=== PATIENT | male | born 1945 | race African-American/Black ===

== ENCOUNTER 2016-07-07 07:31 | Day surgery (SDC) | payer MEDICARE, BC ==
[~2016-07-07 07:31] MED LIST: ASPIRIN81 MG PO; FERROUS SULFAT325 MG PO; HUMULIN R100 U/ML SQ; KEPPRA500 MG PO; LANTUS SOL100 UNIT/1 SQ; LIPITOR40 MG PO; NORVASC10 MG PO; NOVOLIN R100 U/ML SQ; PEPCID40 MG PO; TOPROL XL50 MG PO; ZESTRIL10 MG PO
[2016-07-07] MEDS ORDERED: LEVIMERE (08:53)
[2016-07-07] MEDS ORDERED: ZANTAC150 MG PO (08:57)
[2016-07-07] MEDS ORDERED: HYDRALAZINE HCL50 MG PO (08:58)
[2016-07-07 09:06] VITALS: BP 185/107; Ht 181.6 cm
[2016-07-07 09:31] LABS: APTT 34.7 SECONDS (22.8-39.4); INR 1.01 (0.85-1.17); PROTIME 13.2 SECONDS (11.6-15.0)
[2016-07-07 09:33] LABS: ANION GAP 11.5 mmol/L (8-16); CALCIUM 8.7 mg/dL (8.5-10.1); CARBON DIOXIDE 29.7 mmol/L (21.0-32.0); CREATININE - SERUM 4.7 mg/dL (0.6-1.3); POTASSIUM - SERUM 4.2 mmol/L (3.5-5.1)
[2016-07-07 10:05] LABS: BASOPHILS 1.1 % (0.0-2.0); EOSINOPHILS 1.8 % (0-7); HEMATOCRIT 32.6 % (42.0-54.0); HEMOGLOBIN 10.6 g/dL (13.5-17.5); IMMATURE GRANULOCYTES 0.3 % (0-5); LYMPHOCYTES 14.2 % (15-50); MCH 22.5 pg (26.0-34.0); MCHC 32.5 g/dL (31.0-37.0); MCV 69.1 fL (80.0-100.0); MEAN PLATELET VOLUME 10.3 fL (7.4-10.4); MONOCYTES 7.9 % (2-11); NEUTROPHILS 74.7 % (40-80); PLATELET COUNT 202 10x3/uL (130-400); RBC 4.72 10x6/uL (4.20-6.10); RDW 15.1 % (11.5-14.5); WBC 7.4 10x3/uL (4.8-10.8)
[2016-07-07] MEDS ORDERED: ULTRAM50 MG PO (13:20)
--- NOTE | 2016-07-07 15:20 | NUR ---
1415 HEMOSPLIT FLUSH WITH 2600 UNITS OF HEPRIN AND NORMAL SALINE FLUSH,
--- NOTE | 2016-07-11 09:57 | OP ---
PATIENT NAME: VIRIDIANA AVILA MEDICAL RECORD: [id number] :47 LOCATION:[facility] ADMISSION DATE: SURGEON: AKILAH HELTON MD DATE OF OPERATION: 07/07/2016 He is an outpatient. REFERRED BY: Silver Harper MD PREOPERATIVE DIAGNOSIS: End-stage renal disease, on chronic hemodialysis via a right internal jugular tunneled central dialysis catheter. POSTOPERATIVE DIAGNOSIS: End-stage renal disease, on chronic hemodialysis via a right internal jugular tunneled central dialysis catheter. OPERATION PERFORMED: Left upper extremity venogram with ultrasound-guided access percutaneously of the cephalic vein at the wrist including placement of a catheter in the left subclavian vein and performance of a superior vena cavogram, so that the venous drainage was visualized all the way from the wrist to the right atrium, then creation of a left wrist radiocephalic Maya type AV fistula. 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 PREOPERATIVE NOTE: Mr. Avila is a 71-year-old -[place] male, on hemodialysis with a right internal jugular tunneled catheter. He was referred for dialysis access. Attempts to perform venography at the [facility] was unsuccessful and he is brought to the operating room now to create a fistula or implant a graft most likely in the left upper extremity. He will have left upper extremity venogram and if there was no good access for fistula creation, I will plan to do a venogram on the right as well. Under anesthesia in the supine position, the patient was prepped and draped in sterile manner. A Shelly drain was used as a proximal venous tourniquet and nitroglycerin paste was applied to the skin of the forearm and upper arm. There were a few visible or palpable veins. I used ultrasound to examine him and found that indeed the cephalic vein at the wrist was of good caliber, even though it was not palpable or visible, otherwise, I was able to access it with ultrasound guidance using micropuncture technique and through the 4-Indonesian micropuncture catheter, injected contrast and demonstrated no proximal obstructions. The venous runoff is primarily via the basilic vein. I could not get enough contrast at one time to visualize the central veins. I was able though to advance a Glidewire and glide catheter through the percutaneous puncture site and place the catheter up in the subclavian vein and inject contrast and demonstrated there was no stenosis or other abnormality all the way to the right atrium and superior vena cava. I removed the guidewire and catheter back in the forearm and left it in place to help guide dissection. I made a longitudinal incision at the wrist and exposed the cephalic vein and the radial artery. These vessels were controlled as needed with Silastic loops and atraumatic vascular clamps. The glide catheter and guidewire were removed. The vein was ligated and divided distally. It was treated with topical papaverine. It was flushed with heparinized saline. It was shortened and beveled. It was dilated hydrostatically and prepared for anastomosis. It was about 5 mm or 6 mm OPERATIVE REPORT [id number] TIMOTEOVIRIDIANA NAOMI in diameter. The radial artery was occluded with Silastic loops. An arteriotomy made and the artery flushed with heparinized saline. An end-to-side vein to artery anastomosis was then completed with running 7-0 Prolene. When the anastomosis was complete and the occluding loops and clamps were released, excellent flow was established immediately in the new fistula, which had a good palpable thrill and great continuous pulsatile flow by continuous wave Doppler. The wound was irrigated with saline. Some Fibrillar hemostatic oxidized cellulose was used to complete hemostasis. The wound was irrigated and infiltrated with 0.25% Marcaine without epinephrine and 0.25% Marcaine without epinephrine. The wound was closed with interrupted inverted 3-0 Vicryl and running intracuticular 4-0 Monocryl and Dermabond glue. It was dressed with Maxorb Ag, Tegaderm and Cavilon skin prep and the patient awakened and with a great new fistula taken to the recovery room. Blood loss during the procedure was trivial, almost none. All sponges, instruments and needles were accounted for. No drain was used and no surgical specimen was submitted for histopathology. I will plan to have the patient back to see me in my office in 2 weeks. He will continue to dialyze probably for the next 6-8 weeks with his TDC before the fistula may be usable. He will continue all of his home medications. TRANSINT:[id number] Voice Confirmation ID: [id number] DOCUMENT ID: [id number] AKILAH HELTON MD at 0957 CC: SILVER HARPER MD [id number] DICTATION DATE: 07/07/16 1317 FITNESS TECHNICIAN: 07/07/161921 [facility] 07/07/16 [facility] [address] [id number]
== END 2016-07-07 14:45 | disposition home or self-care (01) ==
LOC: D.OPS 07:31
PROVIDERS: Internal Medicine Nephrology
DX: N18.6 End stage renal disease (principal); Z99.2 Dependence on renal dialysis